=== PATIENT | male | born 1940 | race Caucasian/White ===

== ENCOUNTER 2019-06-30 09:05 | Emergency (ER) | payer MEDICARE ==
[2019-06-30 09:14] VITALS: TEMP 98.2
[2019-06-30] MEDS ORDERED: PANTOPRAZOLE 40 MG/10 ML VIAL IVP STA (09:32)
[2019-06-30] MEDS ORDERED: SODIUM CHLORIDE 0.9% 500 ML 500 ML IV STA (09:32)
[2019-06-30] MEDS ORDERED: ONDANSETRON 4 MG/2 ML VIAL IVP STA (09:32)
--- NOTE | 2019-06-30 09:43 | ED ---
General Adult HPI - General Chief complaint: Nausea/Vomiting/Diarrhea Stated complaint: vomiting Time Seen by Provider: 06/30/19 09:10 Source: patient, RN notes reviewed, old records reviewed Mode of arrival: ambulatory Limitations: no limitations - History of Present Illness Initial comments: This is an 79-year-old male who presents emergency Department stating since he's been vomiting. Patient states he has not been able keep any food or drink down. Patient denies any diarrhea. Patient denies any abdominal pain or abdominal cramping. Patient denies any chest pain palpitations difficulty breathing shortness of breath per patient denies being lightheaded or dizzy. Patient states he knows he is dehydrated so he decided come to the emergency department. Patient states other than vomiting he feels fine. Patient denies any fever or chills. - Related Data Previous Rx's Medication Instructions Recorded Ondansetron Odt [Zofran Odt] 4 mg PO Q8HR PRN #10 tab 06/30/19 Allergies Allergy/AdvReac Type Severity Reaction Status Date / Time [place] Allergy Swelling Verified 06/30/19 09:14 codeine AdvReac Nausea & Verified 06/30/19 09:14 Vomiting Review of Systems ROS Statement: Those systems with pertinent positive or pertinent negative responses have been documented in the HPI. ROS Other: All systems not noted in ROS Statement are negative. Past Medical History History of Any Multi-Drug Resistant Organisms: None Reported Past Surgical History: Back Surgery, Hernia Repair, Orthopedic Surgery, Tonsillectomy Additional Past Surgical History / Comment(s): l knee vasectomy Past Psychological History: No Psychological Hx Reported Smoking Status: Never smoker Past Alcohol Use History: Rare Past Drug Use History: None Reported General Exam - General Exam Comments Initial Comments: GENERAL: Patient is well-developed and well-nourished. Patient is nontoxic and well- hydrated and is in mild distress. ENT: Neck is soft and supple. No significant lymphadenopathy is noted. Oropharynx is clear. Dry mucous membranes. Neck has full range of motion without eliciting any pain. EYES: The sclera were anicteric and conjunctiva were pink and moist. Extraocular movements were intact and pupils were equal round and reactive to light. Eyelids were unremarkable. PULMONARY: Unlabored respirations. Good breath sounds bilaterally. No audible rales rhonchi or wheezing was noted. CARDIOVASCULAR: There is a regular rate and rhythm without any murmurs gallops or rubs. ABDOMEN: Soft and nontender with normal bowel sounds. No palpable organomegaly was noted. There is no palpable pulsatile mass. SKIN: Skin is clear with no lesions or rashes and otherwise unremarkable. NEUROLOGIC: Patient is alert and oriented x3. Cranial nerves II through XII are grossly intact. Motor and sensory are also intact. Normal speech, volume and content. Symmetrical smile. MUSCULOSKELETAL: Normal extremities with adequate strength and full range of motion. No lower extremity swelling or edema. No calf tenderness. LYMPHATICS: No significant lymphadenopathy is noted PSYCHIATRIC: Normal psychiatric evaluation. Limitations: no limitations Course Vital Signs 06/30/19 06/30/19 06/30/19 09:09 09:46 10:14 Temperature 98.2 F Pulse Rate 63 Respiratory 20 Rate Blood Pressure 214/88 185/89 145/72 O2 Sat by Pulse 96 Oximetry 06/30/19 10:55 Temperature Pulse Rate 51 L Respiratory 19 Rate Blood Pressure 153/70 O2 Sat by Pulse 96 Oximetry Medical Decision Making - Medical Decision Making Patient received Zofran emergency department. Patient had no further vomiting in the emergency department. Patient remained abdominal pain-free. Patient felt comfortable going home with some Zofran. - Lab Data Result diagrams: 06/30/19 09:46 06/30/19 09:46 Lab Results 06/30/19 06/30/19 Range/Units 09:46 09:46 WBC 10.8 H (3.8-10.6) k/uL RBC 5.54 (4.30-5.90) m/uL Hgb 16.4 (13.0-17.5) gm/dL Hct 48.3 (39.0-53.0) % MCV 87.2 (80.0-100.0) fL MCH 29.6 (25.0-35.0) pg MCHC 34.0 (31.0-37.0) g/dL RDW 12.6 (11.5-15.5) % Plt Count 289 (150-450) k/uL Neutrophils % 87 % Lymphocytes % 7 % Monocytes % 4 % Eosinophils % 1 % Basophils % 0 % Neutrophils # 9.3 H (1.3-7.7) k/uL Lymphocytes # 0.7 L (1.0-4.8) k/uL Monocytes # 0.5 (0-1.0) k/uL Eosinophils # 0.1 (0-0.7) k/uL Basophils # 0.0 (0-0.2) k/uL Sodium 140 (137-145) mmol/L Potassium 4.1 (3.5-5.1) mmol/L Chloride 103 (98-107) mmol/L Carbon Dioxide 25 (22-30) mmol/L Anion Gap 12 mmol/L BUN 19 (9-20) mg/dL Creatinine 0.80 (0.66-1.25) mg/dL Est GFR (CKD-EPI)AfAm >90 (>60 ml/min/1.73 sqM) Est GFR (CKD-EPI)NonAf 85 (>60 ml/min/1.73 sqM) Glucose 140 H (74-99) mg/dL Calcium 10.1 (8.4-10.2) mg/dL Total Bilirubin 1.1 (0.2-1.3) mg/dL AST 38 (17-59) U/L ALT 27 (4-49) U/L Alkaline Phosphatase 74 (38-126) U/L Total Protein 7.8 (6.3-8.2) g/dL Albumin 4.7 (3.5-5.0) g/dL Amylase 67 (30-110) U/L Lipase 116 (23-300) U/L Disposition Clinical Impression: Acute vomiting Disposition: HOME SELF-CARE Instructions (If sedation given, give patient instructions): Acute Nausea and Vomiting (ED) Prescriptions: Ondansetron Odt [Zofran Odt] 4 mg PO Q8HR PRN #10 tab PRN Reason: Nausea And Vomiting Is patient prescribed a controlled substance at d/c from ED?: No Referrals: Nonstaff,Physician [Primary Care Provider] - 1-2 days Time of Disposition: 11:49
[2019-06-30] MEDS ORDERED: SODIUM CHLORIDE 0.9% 1,000 ML IV ONE (09:50)
[2019-06-30 09:52] LABS: Basophils % (A) 0 %; Eosinophils # (A) 0.1 k/uL (0-0.7); Eosinophils % (A) 1 %; HCT 48.3 % (39.0-53.0); HGB 16.4 gm/dL (13.0-17.5); Lymphocytes # (A) 0.7 k/uL (1.0-4.8); Lymphocytes % (A) 7 %; MCH 29.6 pg (25.0-35.0); MCV 87.2 fL (80.0-100.0); Mean Platelet Volume 7.5; Monocytes # (A) 0.5 k/uL (0-1.0); Monocytes % (A) 4 %; Neutrophils # (A) 9.3 k/uL (1.3-7.7); Neutrophils % (A) 87 %; Platelet Count 289 k/uL (150-450); RBC 5.54 m/uL (4.30-5.90); RDW 12.6 % (11.5-15.5); WBC 10.8 k/uL (3.8-10.6)
[2019-06-30 10:01] LABS: ALT 27 U/L (4-49); AST 38 U/L (17-59); African American GFR (CKD) >90 (>60 ml/min/1.73 sqM); Albumin 4.7 g/dL (3.5-5.0); Alkaline Phosphatase 74 U/L (38-126); Amylase 67 U/L (30-110); Anion Gap 12 mmol/L; Blood Urea Nitrogen 19 mg/dL (9-20); Calcium 10.1 mg/dL (8.4-10.2); Carbon Dioxide 25 mmol/L (22-30); Chloride 103 mmol/L (98-107); Glucose 140 mg/dL (74-99); Non-African American GFR(CKD) 85 (>60 ml/min/1.73 sqM); Potassium 4.1 mmol/L (3.5-5.1); Sodium 140 mmol/L (137-145); Total Bilirubin 1.1 mg/dL (0.2-1.3); Total Protein 7.8 g/dL (6.3-8.2)
--- NOTE | 2019-06-30 10:16 | XR ---
EXAMINATION TYPE: XR KUB DATE OF EXAM: 06/30/2019 10:12 AM CLINICAL HISTORY: Abdominal pain and vomiting for 3 days. TECHNIQUE: Two Upright KUB images of the abdomen are obtained. COMPARISON: None. FINDINGS: Some Paucity of small bowel gas. Scattered gas seen in nondistended small bowel loops centr ally in the abdomen. Gas and fecal material is seen in non-distended colon along the periphery. Of hollis rgical change L4-L5 level. Lung bases are clear. No pneumoperitoneum or suspicious calcification. IMPRESSION: Overall nonspecific strongly favor nonobstructive bowel gas pattern.
[2019-06-30 12:04] VITALS: BP 139/69; PULSE 80; RESP 18
== END 2019-06-30 12:08 | disposition home or self-care (01) ==
LOC: EC 09:05
DX: R11.10 Vomiting, unspecified (principal); Z88.5 Allergy status to narcotic agent; Z91.018 Allergy to other foods
CPT/HCPCS: 99284; 96374; 96375; 96361; 36415; 80053; 82150; 83690; 85025; 74018; J2405; C9113

== ENCOUNTER 2022-09-30 10:12 | Emergency (ER) | payer MEDICARE ==
[2022-09-30 10:23] VITALS: RESP 18; TEMP 98
[2022-09-30 10:47] VITALS: PULSE 69
--- NOTE | 2022-09-30 10:51 | ED ---
General Adult HPI - General Chief complaint: Recheck/Abnormal Lab/Rx Stated complaint: HIGH BP Time Seen by Provider: 09/30/22 10:27 Source: patient, family, RN notes reviewed Mode of arrival: ambulatory Limitations: no limitations - History of Present Illness Initial comments: 82-year-old male with no significant past medical history presents to the emergency department with a chief complaint of high blood pressure. Patient reports that he was getting an at-home visit from his visiting physician acute care assistant where she took his blood pressure was getting better according to 200/90. He was instructed to come to the emergency department for evaluation. Patient is denying any specific complaints at this time. He denies any headache, vision changes, vision loss, dizziness, lightheadedness, nausea, vomiting. He does not take anything for his blood pressure. That his blood pressure will be elevated when he visits the doctor. - Related Data Home Medications Medication Instructions Recorded Confirmed Aspirin EC [Ecotrin Low Dose] 81 mg PO DAILY 06/30/19 06/30/19 Calcium Carbonate/Vitamin D3 1 tab PO DAILY 06/30/19 06/30/19 [Calcium 600-Vit D3 200 Tablet] Cyanocobalamin (Vitamin B-12) 1,000 mcg PO DAILY 06/30/19 06/30/19 [Vitamin B-12] Ferrous Sulfate [Feosol] 325 mg PO DAILY 06/30/19 06/30/19 Multivitamins, Thera [Multivitamin 1 tab PO DAILY 06/30/19 06/30/19 (formulary)] Elcho-3 Fatty Acids [Elcho-3] 1,000 mg PO DAILY 06/30/19 06/30/19 Tamsulosin HCl [Flomax] 0.4 mg PO HS 06/30/19 06/30/19 Previous Rx's Medication Instructions Recorded Ondansetron Odt [Zofran Odt] 4 mg PO Q8HR PRN #10 tab 06/30/19 Allergies Allergy/AdvReac Type Severity Reaction Status Date / Time [place] Allergy Swelling Verified 09/30/22 10:22 codeine AdvReac Nausea & Verified 09/30/22 10:22 Vomiting Review of Systems ROS Statement: Those systems with pertinent positive or pertinent negative responses have been documented in the HPI. ROS Other: All systems not noted in ROS Statement are negative. Past Medical History History of Any Multi-Drug Resistant Organisms: None Reported Past Surgical History: Back Surgery, Hernia Repair, Orthopedic Surgery, Tonsillectomy Additional Past Surgical History / Comment(s): l knee vasectomy Past Psychological History: No Psychological Hx Reported Past Alcohol Use History: Rare Past Drug Use History: None Reported General Exam Limitations: no limitations General appearance: alert, in no apparent distress Head exam: Present: atraumatic, normocephalic, normal inspection Eye exam: Present: normal appearance, PERRL, EOMI. Absent: scleral icterus, conjunctival injection, periorbital swelling ENT exam: Present: normal exam, mucous membranes moist Neck exam: Present: normal inspection. Absent: tenderness, meningismus, lymphadenopathy Respiratory exam: Present: normal lung sounds bilaterally. Absent: respiratory distress, wheezes, rales, rhonchi, stridor Cardiovascular Exam: Present: regular rate, normal rhythm, normal heart sounds. Absent: systolic murmur, diastolic murmur, rubs, gallop, clicks GI/Abdominal exam: Present: soft, normal bowel sounds. Absent: distended, tenderness, guarding, rebound, rigid Extremities exam: Present: normal inspection, full ROM, normal capillary refill. Absent: tenderness, pedal edema, joint swelling, calf tenderness Back exam: Present: normal inspection Neurological exam: Present: alert, oriented X3, CN II-XII intact Psychiatric exam: Present: normal affect, normal mood Skin exam: Present: warm, dry, intact, normal color. Absent: rash Course Vital Signs 09/30/22 09/30/22 09/30/22 10:18 10:41 10:52 Temperature 98 F Pulse Rate 70 69 Pulse Rate [ 69 Pediatric Physical Therapy Assistant ] Respiratory 18 18 Rate Blood Pressure 194/89 170/91 O2 Sat by Pulse 98 96 Oximetry 09/30/22 11:06 Temperature 98 F Pulse Rate 69 Pulse Rate [ Pediatric Physical Therapy Assistant ] Respiratory 18 Rate Blood Pressure 173/89 O2 Sat by Pulse 96 Oximetry EKG Findings - EKG Comments: EKG Findings:: I interpreted the following: EKG performed at 10:27. Rate 63 bpm and normal sinus rhythm. RI interval 175, QRS duration 100, QT/QTc 411/419 Medical Decision Making - Medical Decision Making Was pt. sent in by a medical professional or institution (, PA, SENIOR MECHANICAL ESTIMATOR, urgent care, hospital, or half-way...) When possible be specific @ -[No] Did you speak to anyone other than the patient for history (EMS, parent, family, police, friend...)? What history was obtained from this source @ -[No] Did you review nursing and triage notes (agree or disagree)? Why? @ -[I reviewed and agree with nursing and triage notes] Were old charts reviewed (outside hosp., previous admission, EMS record, old EKG, old radiological studies, urgent care reports/EKG's, half-way records)? Report findings @ -[No old charts were reviewed] Differential Diagnosis (chest pain, altered mental status, abdominal pain women, abdominal pain men, vaginal bleeding, weakness, fever, dyspnea, syncope, headache, dizziness, GI bleed, back pain, seizure, CVA, palpatations, mental health, musculoskeletal)? @ -[not applicable] EKG interpreted by me (3pts min.). @ -[As above] X-rays interpreted by me (1pt min.). @ -[None done] CT interpreted by me (1pt min.). @ -[None done] U/S interpreted by me (1pt. min.). @ -[None done] What testing was considered but not performed or refused? (CT, X-rays, U/S, labs)? Why? @ -[None] What meds were considered but not given or refused? Why? @ -[None] Did you discuss the management of the patient with other professionals (professionals i.e. , PA, SENIOR MECHANICAL ESTIMATOR, lab, RT, psych nurse, sr. social media & mobile manager, dike supervisor, teacher, community service officer coordinator, major case detective)? Give summary @ -[No] Was smoking cessation discussed for >3mins.? @ -[No] Was critical care preformed (if so, how long)? @ -[No] Were there social determinants of health that impacted care today? How? (Homelessness, low income, unemployed, alcoholism, drug addiction, transportation, low edu. Level, literacy, decrease access to med. care, fci, rehab)? @ -[No] Was there de-escalation of care discussed even if they declined (Discuss DNR or withdrawal of care, Hospice)? DNR status @ -[No] What co-morbidities impacted this encounter? (DM, HTN, Smoking, COPD, CAD, Cancer, CVA, ARF, Chemo, Hep., AIDS, mental health diagnosis, sleep apnea, morbid obesity)? @ -[None] Was patient admitted / discharged? Hospital course, mention meds given and route, prescriptions, significant lab abnormalities, going to OR and other pertinent info. @ -Discharged. This is a 82-year-old male who presents the emergency department with high blood pressure. Patient had a thorough history and physical exam performed while in the ED. heart rate regular rate and rhythm, lungs clear to auscultation bilaterally abdomen is soft and non-tender. I discussed the results in detail with the patient and patient's family who verbalized understanding and all questions were addressed. Return precautions were discussed at length. Patient was discharged in stable condition. She was encouraged follow-up with her chief engineer's helper in 1-2 days. Case discussed with JOHN Goodrich who agrees with plan of care Undiagnosed new problem with uncertain prognosis? @ -[No] Drug Therapy requiring intensive monitoring for toxicity (Heparin, Nitro, Insulin, Cardizem)? @ -[No] Were any procedures done? @ -[No] Diagnosis/symptom? @ -White coat syndrome with HTN - Asymptomatic HTN Acute, or Chronic, or Acute on Chronic? @ -Acute Uncomplicated (without systemic symptoms) or Complicated (systemic symptoms)? @ -uncomplicated Side effects of treatment? @ -[No] Exacerbation, Progression, or Severe Exacerbation? @ -[No] Poses a threat to life or bodily function? How? (Chest pain, [place], [place], pneumonia, PE, COPD, DKA, ARF, appy, cholecystitis, CVA, Diverticulitis, Homicidal, Suicidal, threat to staff... and all critical care pts) @ -low likleihood Disposition Clinical Impression: White coat syndrome without diagnosis of hypertension Disposition: HOME SELF-CARE Condition: Stable Instructions (If sedation given, give patient instructions): Hypertensive Crisis (ED) Additional Instructions: Please return to the nearest emergency department if symptoms worsen or persist Please return to the nearest emergency department of chest pain, shortness of breath, dizziness, lightheadedness, headache, vision changes develop Please follow up with Dr. Jones within 1 week Is patient prescribed a controlled substance at d/c from ED?: No Referrals: Grey Kramer MD [Primary Care Provider] - 1-2 days Time of Disposition: 10:51
[2022-09-30 11:06] VITALS: BP 173/89
== END 2022-09-30 11:06 | disposition home or self-care (01) ==
LOC: EC 10:12
DX: R03.0 Elevated blood-pressure reading, without diagnosis of hypertension (principal); Z88.5 Allergy status to narcotic agent; Z91.018 Allergy to other foods; Z79.82 Long term (current) use of aspirin
CPT/HCPCS: 93005; 99283

== ENCOUNTER → 2023-02-27 | Outpatient (CLI) | payer MEDICARE ==
--- NOTE | 2023-02-28 08:35 | MR ---
EXAMINATION TYPE: MR Prostate wo/w con DATE OF EXAM: 02/27/2023 9:51 AM COMPARISON: None. CLINICAL INDICATION:Male, 83 years old with history of Elevated PSA TECHNIQUE: Multi-planar, multi-sequence imaging of the pelvis is performed prior to and following the uncomplicated administration of bolus intravenous gadolinium. CONTRAST: 7.5 Gadavist Interpretive Criteria: PI-RADS v2.1 SERUM PSA: 8.1 on 11/05/2022. 6.28 on 11/03/2022. 11.6 on 01/25/2023 SURGICAL PATHOLOGY: No data available. FINDINGS: Prostatic dimensions: 5.4 x 4.0 x 3.7 cm. "Bullet" Volume:52.31 (PSA density=0.22 ng/mL/mL) CENTRAL GLAND (Central and Transition Zones/CZ+TZ): Multiple bilateral, heterogenous appearing hypertrophic stromal nodules, without suspicious lesion. M edian lobe hypertrophy with protrusion into the base of the bladder. (PI-RADS 2) PERIPHERAL ZONE (PZ): Slightly limited peripheral zone evaluation on diffusion-weighted imaging secondary to bowel gas. Juanito ateral linear, indistinct wedgelike areas of low ADC, and low T2 signal, No evidence of masslike abno rmality, or localized perfusional hypervascularity, to further suggest a focus of clinically signific ant prostate cancer. (PI-RADS 2) SEMINAL VESICLES (SV): Symmetric and unremarkable. PERIPROSTATIC TISSUES: Unremarkable. LYMPH NODES: No enlarged pelvic lymph node. REMAINING PELVIS: Circumferential bladder wall thickening with trabeculations likely secondary to chronic bladder outfl ow obstruction. No abnormal free or organized intrapelvic fluid collection. No pathologic bowel dilation or mural thickening. Right fat containing inguinal hernia OSSEOUS STRUCTURES: No suspicious osseous abnormality. The susceptibility artifact partially visualized in the lower lumb ar spine on the right. IMPRESSION: 1. No specific features for high-risk prostate cancer. Maximum PI-RADS score: 2. 2. Moderate BPH, estimated gland volume 52.31 mL.
== END | disposition home or self-care (01) ==
LOC: RADMRIMAIN 08:46
PROVIDERS: ATTEND Urology
DX: N40.0 Benign prostatic hyperplasia without lower urinary tract symptoms (principal); R97.20 Elevated prostate specific antigen [PSA]
CPT/HCPCS: 72197; A9585